=== PATIENT | male | born 1990 | race American Indian/Alaskan Native ===

== ENCOUNTER 2017-06-05 12:31 | Emergency (ER) | payer SELFPAY ==
[2017-06-05 13:28] LABS: Bacteria,Urine 1+ /HPF (Negative); Bilirubin,Urine NEG (Negative); Blood,Urine SM (Negative); Color,Urine Yellow (Yellow); Mucus,Urine 3+ /HPF
--- NOTE | 2017-06-05 13:44 | Emergency Department Report ---
ED Male HPI - General Chief complaint: Urogenital-Male Stated complaint: LOWER BACK PAIN/DARK URINE Source: patient Mode of arrival: Ambulatory Limitations: No Limitations - History of Present Illness Initial comments: 26-year-old -[place] male comes in complaining of lower back pain and dark urine for the last 2 days. Patient reports some dysuria also asking for STD check. Patient reports he stopped taking lean which is codeine syrup he's been getting some some prescription for some off the streets. He is at its way smoker. He denies any recent trauma to his back. He reports that the lower back pain as sharp and colicky. He does admit not drinking much fluids but had drank some last night. Patient has been sexually active with women unprotected T partners in the last 3 months. Patient has no past medical history currently takes no medications and has no known drug allergies. MD Complaint: dysuria -: days(s) (2) Location: right flank, left flank Radiation: other (both sides of back) Severity scale (0 -10): 5 Quality: sharp Consistency: intermittent Improves with: none Worsens with: urination, movement dysuria. denies: fever, nausea/vomiting - Related Data Sexually active: Yes (when into partners unprotected last 3 months) Previous Rx's Medication Instructions Recorded Last Taken Type Cephalexin [Keflex] 500 mg PO BID #20 capsule 06/05/17 Unknown Rx Allergies Allergy/AdvReac Type Severity Reaction Status Date / Time No Known Allergies Allergy Unverified 06/05/17 12:49 ED Review of Systems ROS: Stated complaint: LOWER BACK PAIN/DARK URINE Other details as noted in HPI Constitutional: denies: chills, fever Eyes: denies: eye pain, eye discharge, vision change ENT: denies: ear pain, throat pain Respiratory: denies: cough, shortness of breath, wheezing Cardiovascular: denies: chest pain, palpitations Endocrine: no symptoms reported Gastrointestinal: other Genitourinary: dysuria, other (dark urine) Musculoskeletal: back pain (more like flank pain) Skin: denies: rash, lesions Neurological: denies: headache, weakness, paresthesias Psychiatric: denies: anxiety, depression Hematological/Lymphatic: denies: easy bleeding, easy bruising ED Past Medical Hx - Past Medical History Previous Medical History?: No - Surgical History Past Surgical History?: No - Social History Smoking Status: Current Every Day Smoker Substance Use Type: None, Alcohol, Marijuana - Medications Home Medications: Home Medications Medication Instructions Recorded Confirmed Last Taken Type Cephalexin [Keflex] 500 mg PO BID #20 capsule 06/05/17 Unknown Rx ED Physical Exam - General Limitations: No Limitations General appearance: alert, in no apparent distress - Head Head exam: Present: atraumatic, normocephalic - Eye Eye exam: Present: normal appearance - ENT ENT exam: Present: mucous membranes moist - Neck Neck exam: Present: normal inspection - Respiratory Respiratory exam: Present: normal lung sounds bilaterally. Absent: respiratory distress - Cardiovascular Cardiovascular Exam: Present: regular rate, normal rhythm. Absent: systolic murmur, diastolic murmur, rubs, gallop - GI/Abdominal GI/Abdominal exam: Present: soft, normal bowel sounds - Rectal Rectal exam: Present: deferred - Extremities Exam Extremities exam: Present: normal inspection - Back Exam Back exam: Present: normal inspection, CVA tenderness (R), CVA tenderness (L) - Neurological Exam Neurological exam: Present: alert, oriented X3 - Psychiatric Psychiatric exam: Present: normal affect, normal mood - Skin Skin exam: Present: warm, dry, intact, normal color. Absent: rash ED Course Vital Signs 06/05/17 12:49 Temperature 98.6 F Pulse Rate 50 L Respiratory 20 Rate Blood Pressure 110/71 O2 Sat by Pulse 100 Oximetry ED Medical Decision Making - Lab Data Result diagrams: 06/05/17 13:52 06/05/17 13:52 - Radiology Data Radiology results: report reviewed, image reviewed FINDINGS: Normal noncontrast appearance of the liver, gallbladder, adrenals, pancreas, and spleen. Normal caliber abdominal aorta and IVC. Very small fat containing umbilical hernia. No retroperitoneal adenopathy. No mesenteric mass. No evidence of acute fracture or focal osseous lesion. Normal-appearing stomach and duodenum. No small bowel distention in the abdomen and pelvis. No renal calculus or hydronephrosis. No calculus or distention in the visible ureteral segments, obscured in the pelvis by adjacent anatomy. No pelvic free fluid. Nonspecific slight mural thickening in the urinary bladder is diffuse. This may be artifact of decompression. Normal-appearing prostate and seminal vesicles. No definite rectal abnormality. Normal-appearing sigmoid colon. No gross ascites, free air, or colonic distention. Normal-appearing cecum, terminal ileum, and appendix. IMPRESSION: Diffuse urinary bladder wall thickening may be artifact of decompression. Differential includes cystitis No CT evidence of urinary tract calculus or obstruction Transcribed By: BAL Dictated By: LINDSEY LIAO MD Electronically Authenticated By: LINDSEY LIAO MD Signed Date/Time: 06/05/171437 DD/ 37 TD/TT: 06/05/171437 - Medical Decision Making Patient has been evaluated by this provider fast track. This provider's ordered CBC CMP CK gonorrhea chlamydia and a CT of the abdomen. Concern for possible rhabdo, urinary stone severe urinary tract infection, gonorrhea/ chlamydia We'll also order IV fluids 2 L wide open now. Patient verbalized understanding. Patient urine come back with 98 WBC large amount of blood. CK came back 874. Will treat patient with Rocephin 2 g IV and another liter of normal saline. UDS ordered, once patient's had IV fluids we'll recheck his CK. Critical care attestation.: If time is entered above; I have spent that time in minutes in the direct care of this critically ill patient, excluding procedure time. ED Disposition Clinical Impression: Cystitis, Elevated CK, Possible exposure to STD Disposition: DC-01 TO HOME OR SELFCARE Is pt being admited?: No Does the pt Need Aspirin: No Condition: Stable Instructions: Urinary Tract Infection in Men (ED) Additional Instructions: Please complete antibiotics as prescribed. Please increase his water intake by 2 L. Please follow up with [facility] in 5-7 days for recheck. Prescriptions: Cephalexin [Keflex] 500 mg PO BID #20 capsule Referrals: PRIMARY CAREMD [Primary Care Provider] - 3-5 Days [facility] [Provider Group] - 3-5 Days Forms: Work/School Release Form(ED)
[2017-06-05] MEDS ORDERED: NACL 0.9% 1000 ML 1,000 ML IV ONE ×2 (13:47→14:54)
[2017-06-05 14:24] LABS: BUN/Creatinine Ratio 12; Blood Urea Nitrogen 12 mg/dL (9-20)
[2017-06-05 14:25] LABS: Alanine Aminotransferase 63 units/L (7-56); Albumin 4.5 g/dL (3.9-5); Calcium 9.5 mg/dL (8.4-10.2); Hemolysis Index 17
[2017-06-05 14:39] LABS: Hematocrit 45.7 % (35.5-45.6); Hemoglobin 15.1 gm/dl (11.8-15.2); Mean Corpuscular HGB Conc 33 % (32-34); Mean Corpuscular Hemoglobin 32 pg (28-32); Mean Corpuscular Volume 96 fl (84-94); Platelet Count 268 K/mm3 (140-440); Red Blood Count 4.75 M/mm3 (3.65-5.03); Red Cell Distribution Width 13.7 % (13.2-15.2)
--- NOTE | 2017-06-05 14:43 | Cat Scan Report ---
FINAL REPORT EXAM: CT ABDOMEN PELVIS WO CON HISTORY: back pain with hematuria TECHNIQUE: CT examination of the ABDOMEN without IV contrast CT examination of the PELVIS without IV contrast PRIORS: None. FINDINGS: Normal noncontrast appearance of the liver, gallbladder, adrenals, pancreas, and spleen. Normal caliber abdominal aorta and IVC. Very small fat containing umbilical hernia. No retroperitoneal adenopathy. No mesenteric mass. No evidence of acute fracture or focal osseous lesion. Normal-appearing stomach and duodenum. No small bowel distention in the abdomen and pelvis. No renal calculus or hydronephrosis. No calculus or distention in the visible ureteral segments, obscured in the pelvis by adjacent anatomy. No pelvic free fluid. Nonspecific slight mural thickening in the urinary bladder is diffuse. This may be artifact of decompression. Normal-appearing prostate and seminal vesicles. No definite rectal abnormality. Normal-appearing sigmoid colon. No gross ascites, free air, or colonic distention. Normal-appearing cecum, terminal ileum, and appendix. IMPRESSION: Diffuse urinary bladder wall thickening may be artifact of decompression. Differential includes cystitis No CT evidence of urinary tract calculus or obstruction
[2017-06-05] MEDS ORDERED: ROCEPHIN/NS 2 GM/100 ML 2 GM/100 ML BAG IV ONE (14:53)
[2017-06-05] MEDS ORDERED: ZITHROMAX PO ONE (14:54)
[2017-06-05] MEDS ORDERED: cefTRIAXone 2 GM in NACL 0.9% 20 ML IV ONE (15:00)
[2017-06-05 17:39] VITALS: BP 122/76
[2017-06-05 18:43] LABS: Anisocytosis 1+; Basophils % (Manual) 0 % (0.0-1.8); Platelet Estimate Consistent w Auto; Total Cells Counted 100
== END 2017-06-05 17:39 | disposition home or self-care (01) ==
LOC: ED 12:31
DX: N30.90 Cystitis, unspecified without hematuria (principal); R74.8 Abnormal levels of other serum enzymes; F17.200 Nicotine dependence, unspecified, uncomplicated; F12.10 Cannabis abuse, uncomplicated
CPT/HCPCS: 36415; 74176; 80053; 81001; 82550; 85007; 85025; 96361; 96365; 96366; 99284; J0696; J7030

== ENCOUNTER 2017-07-26 09:40 | Emergency (ER) | payer SELFPAY ==
[2017-07-26 10:13] VITALS: BP 119/71
--- NOTE | 2017-07-26 12:11 | Emergency Department Report ---
- General Chief complaint: Animal Bite Stated complaint: TICK BITE/ THIGH RASH Time Seen by Provider: 07/26/17 12:10 Source: patient Mode of arrival: Ambulatory Limitations: No Limitations - History of Present Illness Initial comments: 27-year-old male past medical history none presents with complaint of tick bites to back and left flank. 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 He noticed that he had been bitten by ticks. Patient states he pulled him off his skin as soon as he noticed that they were there. Patient states he is familiar with what 6 look like and is able to describe the insect. Patient denies any current fever or chills disseminated rash and nausea vomiting abdominal pain. States that he can localize the areas where he was stung by insect. Denies any symptoms at this time. Awake alert and oriented 3 nontoxic appearing. MD complaint: abscess/boil Onset/Timin -: days(s) Treatments Prior to Arrival: none - Related Data Previous Rx's Medication Instructions Recorded Last Taken Type Cephalexin [Keflex] 500 mg PO BID #20 capsule 06/05/17 Unknown Rx Doxycycline [Vibramycin CAP] 100 mg PO Q12HR #20 capsule 07/26/17 Unknown Rx Ibuprofen [Motrin] 800 mg PO Q8HR PRN #25 tablet 07/26/17 Unknown Rx Allergies Allergy/AdvReac Type Severity Reaction Status Date / Time No Known Allergies Allergy Unverified 06/05/17 12:49 Abscess Boil HPI - HPI Chief Complaint: Animal Bite Stated Complaint: TICK BITE/ THIGH RASH Time Seen by Provider: 07/26/17 12:10 Duration: 3 Days Location: Back Severity: Mild History: Yes Insect Bite, No Fever, No Pain, No Purulent Drainage, No Numbness, No Foreign Body, No Previous History HPI: 27-year-old male past medical history none Home Medications: Previous Rx's Medication Instructions Recorded Last Taken Type Cephalexin [Keflex] 500 mg PO BID #20 capsule 06/05/17 Unknown Rx Doxycycline [Vibramycin CAP] 100 mg PO Q12HR #20 capsule 07/26/17 Unknown Rx Ibuprofen [Motrin] 800 mg PO Q8HR PRN #25 tablet 07/26/17 Unknown Rx Allergies/Adverse Reactions: Allergies Allergy/AdvReac Type Severity Reaction Status Date / Time No Known Allergies Allergy Unverified 06/05/17 12:49 ED Review of Systems ROS: Stated complaint: TICK BITE/ THIGH RASH Other details as noted in HPI Constitutional: denies: chills, fever Eyes: denies: eye pain, eye discharge, vision change ENT: denies: ear pain, throat pain Respiratory: denies: cough, shortness of breath, wheezing Cardiovascular: denies: chest pain, palpitations Endocrine: no symptoms reported Gastrointestinal: denies: abdominal pain, nausea, diarrhea Genitourinary: denies: urgency, dysuria Musculoskeletal: denies: back pain, joint swelling, arthralgia Skin: as per HPI, lesions. denies: rash Neurological: denies: headache, weakness, paresthesias Psychiatric: denies: anxiety, depression Hematological/Lymphatic: denies: easy bleeding, easy bruising ED Past Medical Hx - Past Medical History Previous Medical History?: No - Surgical History Past Surgical History?: No - Social History Smoking Status: Current Every Day Smoker Substance Use Type: Marijuana - Medications Home Medications: Home Medications Medication Instructions Recorded Confirmed Last Taken Type Cephalexin [Keflex] 500 mg PO BID #20 capsule 06/05/17 Unknown Rx Doxycycline [Vibramycin CAP] 100 mg PO Q12HR #20 capsule 07/26/17 Unknown Rx Ibuprofen [Motrin] 800 mg PO Q8HR PRN #25 tablet 07/26/17 Unknown Rx ED Physical Exam - General Limitations: No Limitations General appearance: alert, in no apparent distress - Head Head exam: Present: atraumatic, normocephalic - Eye Eye exam: Present: normal appearance - ENT ENT exam: Present: mucous membranes moist - Neck Neck exam: Present: normal inspection - Respiratory Respiratory exam: Present: normal lung sounds bilaterally. Absent: respiratory distress - Cardiovascular Cardiovascular Exam: Present: regular rate, normal rhythm. Absent: systolic murmur, diastolic murmur, rubs, gallop - GI/Abdominal GI/Abdominal exam: Present: soft, normal bowel sounds - Rectal Rectal exam: Present: deferred - Extremities Exam Extremities exam: Present: normal inspection - Back Exam Back exam: Present: normal inspection - Neurological Exam Neurological exam: Present: alert, oriented X3, CN II-XII intact, normal gait - Psychiatric Psychiatric exam: Present: normal affect, normal mood - Skin Skin exam: Present: warm, dry, intact, normal color. Absent: rash - Expanded Skin Exam Expanded Type of lesion: Present: bite/sting 1 - Small insect sting here cellulitis ED Course Vital Signs 07/26/17 10:06 Temperature 98.7 F Pulse Rate 55 L Respiratory 20 Rate Blood Pressure 119/71 O2 Sat by Pulse 99 Oximetry ED Medical Decision Making - Medical Decision Making A/P: Tick bite 1-empiric treatment with doxycycline 10 day course. Patient has no clinical signs or symptoms of Lyme disease and was only just bitten by insects in the last 3 days. I discussed this with Dr. Todd 2-follow up with primary care and infectious disease 3-advised patient to return to the ED for any fevers chills purulent drainage or induration at sites of bites or disseminated rash associated target lesions. Patient stated he understood my instructions. 4- Motrin when necessary Critical care attestation.: If time is entered above; I have spent that time in minutes in the direct care of this critically ill patient, excluding procedure time. ED Disposition Clinical Impression: Tick bite Qualifiers: Encounter type: initial encounter Qualified Code(s): W57.XXXA - Bitten or stung by nonvenomous insect and other nonvenomous arthropods, initial encounter Bug bite Qualifiers: Encounter type: initial encounter Qualified Code(s): W57.XXXA - Bitten or stung by nonvenomous insect and other nonvenomous arthropods, initial encounter Disposition: DC-01 TO HOME OR SELFCARE Is pt being admited?: No Does the pt Need Aspirin: No Condition: Stable Instructions: Doxycycline (By mouth), Insect Bite or Sting (ED), Tick Bite (ED) Prescriptions: Doxycycline [Vibramycin CAP] 100 mg PO Q12HR #20 capsule Ibuprofen [Motrin] 800 mg PO Q8HR PRN #25 tablet PRN Reason: Pain , Severe (7-10) Referrals: [facility] [Provider Group] - 3-5 Days DC GREEN MD [Staff Physician] - 3-5 Days Forms: Accompanied Note, Work/School Release Form(ED) Time of Disposition: 12:37
== END 2017-07-26 12:58 | disposition home or self-care (01) ==
LOC: ED 09:40
DX: S30.861A Insect bite (nonvenomous) of abdominal wall, initial encounter (principal); F17.200 Nicotine dependence, unspecified, uncomplicated; F12.90 Cannabis use, unspecified, uncomplicated; W57.XXXA Bitten or stung by nonvenomous insect and other nonvenomous arthropods, initial encounter; Y93.89 Activity, other specified; Y99.8 Other external cause status; Y92.89 Other specified places as the place of occurrence of the external cause
CPT/HCPCS: 99282